=== PATIENT | female | born 1955 | race Caucasian/White ===

== ENCOUNTER 2016-11-15 08:28 | Outpatient (CLI) | payer OTHER ==
--- OUTSIDE RECORDS SUMMARY | 2016-11-15 08:31 | XMS | Summary of Care ---
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 Other malignant neoplasm of unspecified site(199.1, C80.1) Status:Active Abnormal finding in urine(791.9, R82.90) Status:Active Uterine cancer(179, C55) Status:Active Disturbance of acid-base balance(276.9, E87.8) Status:Active Malignant neoplasm of corpus uteri(182.0, C54.9) Status:Active Encounter for antineoplastic chemotherapy(V58.11, Z51.11) Status:Active Malignant neoplasm of cervix uteri(180.9, C53.9) Status:Active Medications Name Dates Details Multi-Vitamin TABS Refills:0 Active Megestrol Acetate 40 MG Oral Tablet 1 pill by mouth four times daily Quantity:120 Refills:3 PEDLEYP.A., ROCKY Start :12-Jan-2016 Active Allergies and Adverse Reactions Name Dates Details Flagyl TABS(Allergy) Status:Active Levaquin TABS(Allergy) Status:Active Macrobid CAPS(Allergy) Status:Active ondansetron(Allergy) Onset:14-Jan-2016 Status:Active Sulfa Antibiotics(Allergy) Status:Active Procedures Procedure Dates Details CT Abdomen/Pelvis w/wo contrast 04430 Date:09-Nov-2016 History of Section Completed History of Carotid Artery Catheterization Completed History of Total Abdominal Hysterectomy With Removal Of Completed Both Ovaries History of Lymphadenectomy Completed Immunization Name Dates Details Immunizations not documented Family History Name Dates Details Family history of Uterine Cancer(V16.49) Comments:Family History Status:Active Family history of Bladder Cancer(V16.52) Comments:Family History Status:Active Family history of Pancreatic Cancer Susceptibility Comments:Family History Status:Active Name Dates Details Family history of Brain Cancer(V16.8) Status:Active Name Dates Details Family history of Hypertension(V17.49) Status:Active Social History Name Dates Details - Status: Name Dates Details Never smoker Vital Signs Date Test Result Details No Known Vitals to report Results Date Description Value Details Results not documented Plan of Care Name Dates Details Planned Observations Planned Goals not documented Planned Encounters Appointment; CRYSTAL MARTINI M.D. On:01-Dec-2016 10:45 Interventions Provided Labs/Procedures/ImagingCT Abdomen/Pelvis w/wo contrast 25253; To Be Done: 09 Nov 2016 Instructions Name Dates Details Instructions not documented Encounters Appointment; CRYSTAL MARTINI M.D. On:22-Dec-2015 14:00 Encounter Diagnosis:Problem not documented Appointment; CRYSTAL MARTINI M.D. On:28-Dec-2015 12:45 Encounter Diagnosis:Problem not documented Appointment; CRYSTAL MARTINI M.D. On:12-Jan-2016 13:00 Encounter Diagnosis:Problem not documented Appointment; FRANKIE MARTINI On:14-Jan-2016 8:30 Encounter Diagnosis:Problem not documented Appointment; CRYSTAL MARTINI M.D. On:04-Feb-2016 9:30 Encounter Diagnosis:Problem not documented Appointment; LAVELLE MARTINI On:04-Feb-2016 10:00 Encounter Diagnosis:Problem not documented Appointment; CRYSTAL MARTINI M.D. On:26-Feb-2016 8:30 Encounter Diagnosis:Problem not documented Appointment; FRANKIE MARTINI On:26-Feb-2016 8:30 Encounter Diagnosis:Problem not documented Appointment; FRANKIE MARTINI On:17-Mar-2016 9:30 Encounter Diagnosis:Problem not documented Appointment; CRYSTAL MARTINI M.D. On:17-Mar-2016 9:30 Encounter Diagnosis:Problem not documented Appointment; CHAIR VINI3 On:07-Apr-2016 9:30 Encounter Diagnosis:Problem not documented Appointment; CRYSTAL MARTINI M.D. On:07-Apr-2016 9:30 Encounter Diagnosis:Problem not documented Appointment; CRYSTAL MARTINI M.D. On:28-Apr-2016 9:30 Encounter Diagnosis:Problem not documented Appointment; LAVELLE MARTINI On:28-Apr-2016 10:00 Encounter Diagnosis:Problem not documented Appointment; CRYSTAL MARTINI M.D. On:02-Jun-2016 10:30 Encounter Diagnosis:Problem not documented Appointment; CRYSTAL MARTINI M.D. On:31-Aug-2016 10:30 Encounter Diagnosis:Problem not documented
--- OUTSIDE RECORDS SUMMARY | 2016-11-15 08:31 | XMS | Summary of Care ---
:1955 Author Name CRYSTAL MARTINI Address Unavailable Unavailable , Care Team Providers [...] Procedure Dates Details CT Abdomen/Pelvis w/wo contrast 61023 Date:09-Nov-2016 History of Section Completed History of [...] 10:45 Interventions Provided Labs/Procedures/ImagingCT Abdomen/Pelvis w/wo contrast 42513; To Be Done: 09 Nov 2016 Instructions [...] On:28-Apr-2016 9:30 Encounter Diagnosis:Problem not documented Appointment; CHAIR VINI2 On:28-Apr-2016 10:00 Encounter Diagnosis:Problem not documented Appointment; CRYSTAL MARTINI M.D. On:02-Jun-2016 10:30 Encounter Diagnosis:Problem not documented Appointment; CRYSTAL MARTINI M.D. On:31-Aug-2016 10:30 Encounter Diagnosis:Problem not documented
--- OUTSIDE RECORDS SUMMARY | 2016-11-15 08:34 | XMS | Clinical Summary ---
:1955 Author Organization [facility] Address [address] [place] [id number] Phone Care Team Providers Name Role Phone Leann José Primary Care Provider Unavailable Allergies Not on File Current Medications Not on file Active Problems Not on file Social History Tobacco Use Types Packs/Day Years Used Date Never Assessed Sex Assigned at Date Recorded Not on file Last Filed Vital Signs Not on file Plan of Treatment Not on file Results Not on filefrom Last 3 Months
[2016-11-15] MEDS ORDERED: Iopamidol 370 76% 100 ML VIAL ONE (09:00)
--- NOTE | 2016-11-15 12:42 | CT ---
CT ABDOMEN WITH AND WITHOUT IV CONTRAST: CT PELVIS WITH AND WITHOUT IV CONTRAST: 11/15/2016 HISTORY: Uterine cancer. COMPARISON: 12/17/2015 and 08/23/2016 FINDINGS: There is linear atelectasis at the left lung base with calcified granuloma again seen. There is min imal atelectasis in the right middle lobe. No discrete pulmonary nodule or mass is identified. No renal or ureteral calculi are seen bilaterally. There is no hydronephrosis. Stable subcentimete r hypodense lesions are again seen at the inferior pole, left kidney, which is difficult to characte rize but statistically likely represents small cysts. Splenic granulomata are present. The liver, pancreas, bilateral adrenal glands, abdominal aorta, opacified bowel, and partially diste nded urinary bladder demonstrate a normal CT appearance. Post surgical changes of the pelvis are again seen, including a hysterectomy. The small, low density soft tissue nodule in the midline anterior pelvis is again seen, measuring 1. 3 cm x 1.1 cm, and previously measured 1.5 cm x 1.4 cm. Scarring in the infraumbilical location is again seen. No free fluid, fluid collection, or lymphadenopathy is seen in the abdomen or pelvis. No other inte rval change. IMPRESSION: 1. Soft tissue nodule, midline anterior pelvis. The overall size is slightly smaller in size maday red to the study on 08/23/2016, where this previously measured 1.5 cm x 1.4 cm and now measure 1.3 c m x 1 cm. The previously described second soft tissue nodule, associated with a small fat-containin g hernia, is not perceptible on this exam. No new soft tissue nodule or lymphadenopathy is seen. 2. Post surgical changes of the pelvis. 3. Previously described prominence involving the verma of the second and third portions of the duod enum is again present. This was also present on the study of 05/23/2016. Given the appearance of t hickening in this region, over multiple studies, endoscopy is suggested for further evaluation. The re is no evidence of bowel obstruction in this region. 4. Stable hypodense lesions, inferior pole, left kidney, statistically likely representing small cy sts. 5. Stable post surgical changes of the pelvis, including hysterectomy. POS: [facility]
== END 2016-11-15 08:29 | disposition home or self-care (01) ==
LOC: SCSCT 08:28
PROVIDERS: ATTEND Obstetrics & Gynecology Gynecologic Oncology
DX: C54.9 Malignant neoplasm of corpus uteri, unspecified (principal); N28.89 Other specified disorders of kidney and ureter; Z90.710 Acquired absence of both cervix and uterus
CPT/HCPCS: 74178

== ENCOUNTER 2017-05-22 07:24 | Outpatient (CLI) | payer OTHER ==
--- NOTE | 2017-05-22 10:25 | CT ---
CT ABDOMEN WITH CONTRAST CT PELVIS WITH CONTRAST: DATE: 05/22/17. TIME: 8:21 a.m. HISTORY: A 61-year-old female with malignant neoplasm of corpus uteri (182.0) (C54.9). COMPARISON: 11/15/16. TECHNIQUE: IV injection of iodinated contrast media: 99 mL of Isovue 370. Oral contrast media: administered. FINDINGS: Uterus is surgically absent. No evidence of adnexal mass. 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 No iliac chain lymphadenopathy identified. Normal urinary bladder. No evidence of tumor mass within the pelvic cavity. Moderately large volume of stool slightly distending the rectu m as previously. No signs of acute colonic diverticulitis. No small bowel dilation. No retroperito kelly, mesenteric, or marques hepatis lymphadenopathy. Small round 1 cm hypodense lesion at lower pole parenchyma of left kidney, stable since 12/17/15, probably a benign cyst. Otherwise, bilaterally norm al kidneys. Liver, adrenals, pancreas, and spleen and appendix are normal. No ascites or pneumoperi toneum. No infiltrate or pleural effusion at lung bases. Again noted is the soft tissue attenuation , approximately 2 x 2.5 x 3 cm mass-like density at the junction between the 2nd and 3rd stages of th e duodenum, similar in appearance to 11/15/16. There is no destructive osseous lesion. Overall, ther e has been no significant interval change since 11/15/16. IMPRESSION: 1. Status post hysterectomy and iliac chain lymph node dissection. 2. No evidence of tumor recurrence in pelvis or metastatic disease. 3. Mass-like density in the duodenum. Recommend endoscopy (if not already performed). 4. No interval change overall since 11/15/16. BECKY Ortiz POS: [facility]
== END 2017-05-22 07:25 | disposition home or self-care (01) ==
LOC: SCSCT 07:24
PROVIDERS: ATTEND Obstetrics & Gynecology Gynecologic Oncology
DX: Z08 Encounter for follow-up examination after completed treatment for malignant neoplasm (principal); Z85.42 Personal history of malignant neoplasm of other parts of uterus; R93.3 Abnormal findings on diagnostic imaging of other parts of digestive tract; Z90.710 Acquired absence of both cervix and uterus; Z98.890 Other specified postprocedural states
CPT/HCPCS: 74177; 82565

== ENCOUNTER 2017-11-17 07:37 | Outpatient (CLI) | payer OTHER ==
[2017-11-17] MEDS ORDERED: Iopamidol 370 76% 100 ML VIAL ONE (09:00)
--- NOTE | 2017-11-17 09:17 | CT ---
CT ABDOMEN AND PELVIS WITH IV CONTRAST: DATE: 11/17/2017. HISTORY: Abdominal pain. Followup ovarian cancer. COMPARISON: 05/22/2017. FINDINGS: Calcified granuloma is seen in the left lower lobe. There is atelectasis versus scarring in the righ t middle lobe with linear atelectasis at the left lung base. No noncalcified pulmonary nodule is see n at either lung base. Calcified granuloma is again seen in the spleen. The liver, pancreas, bilateral adrenal glands, right kidney, and decompressed urinary bladder demonst rate a normal CT appearance. There is a stable subcentimeter too small to characterize hypodense lesion in the inferior pole left kidney statistically likely related to a cyst. Again noted is the mass-like density in the most proximal aspect of the third portion of the duodenum . This measures approximately 3.1 cm x 4 cm. This measured 3 cm x 2.2 cm on the prior exam. This d oes not result in obstruction. As noted on the prior exam, endoscopy is suggested for further evalua tion if this has not been performed. The uterus is absent, likely related to hysterectomy. Surgical clips are seen in the lateral aspect of the pelvis bilaterally also likely related to bilateral oophorectomy. There is a small mass seen within the lower pelvis to the left of midline measuring 2.7 cm x 2 cm, wh ich may represent a solitary metastatic lesion in this region. There has also been interval enlargem ent of a left inguinal lymph node which measures 2.4 cm. No additional enlarged lymph nodes are appr eciated. No other interval change. IMPRESSION: 1. Evidence for metastatic disease with a mass seen in the left pelvis measuring 2.7 cm in maximal d imensions as well as interval development of an enlarged left inguinal lymph node measuring 2.4 cm. 2. Overall stable mass-like density in the proximal 3rd portion of the duodenum. Endoscopy is recom mended for further evaluation if this has not been performed. 3. Hysterectomy. There is nonvisualization of the bilateral ovaries, and findings could also be rel ated to bilateral oophorectomy. CODE T POS: [facility]
== END 2017-11-17 07:38 | disposition home or self-care (01) ==
LOC: SCSCT 07:37
PROVIDERS: ATTEND Obstetrics & Gynecology Gynecologic Oncology
DX: C54.9 Malignant neoplasm of corpus uteri, unspecified (principal); C79.89 Secondary malignant neoplasm of other specified sites; K31.89 Other diseases of stomach and duodenum; Z90.710 Acquired absence of both cervix and uterus; Z90.722 Acquired absence of ovaries, bilateral
CPT/HCPCS: 74177; 82565

== ENCOUNTER 2018-02-15 07:33 | Outpatient (CLI) | payer OTHER ==
--- NOTE | 2018-02-15 13:19 | CT ---
PELVIC CT WITH CONTRAST: Date: 02/15/18 COMPARISON: CT abdomen and pelvis dated 11/17/17; CT abdomen and pelvis dated 05/22/17. CLINICAL INDICATION: History of ovarian cancer, pain, follow-up. (Malignant neoplasm uteri 182.0). FINDINGS: Prior left inguinal lymph node has enlarged, measuring 3.1 x 2.6 cm, compared to 2.3 cm on prior exam . There has been interval enlargement of metastatic deposit within the posterior left pelvis adjacent to the left aspect of the distal sigmoid colon, now measuring 3.9 x 2.4 cm in axial dimension, as co mpared to most recent comparison size of 2.6 x 1.9 cm. On the prior two exams, no duodenal mass was d emonstrated, and this region is not imaged on the current CT pelvis exam for comment. There has been interval enlargement of an additional left inguinal chain lymph node, immediately infe rior to the above described enlarged lymph node. This lymph node measures 2.0 x 1.4 cm in axial dimen sions, compared to 1.5 x 1.1 cm in a similar location on prior exam. Nonspecific wall prominence of the underdistended, visualized colon. Redemonstration of postsurgical change of hysterectomy. IMPRESSION: Progressive metastatic disease of the pelvis, as described above. POS: [facility]
== END 2018-02-15 07:34 | disposition home or self-care (01) ==
LOC: SCSCT 07:33
PROVIDERS: ATTEND Obstetrics & Gynecology Gynecologic Oncology
DX: C54.9 Malignant neoplasm of corpus uteri, unspecified (principal); C79.89 Secondary malignant neoplasm of other specified sites
CPT/HCPCS: 72193; 82565

== ENCOUNTER 2018-05-07 12:15 | Outpatient (CLI) | payer OTHER ==
--- NOTE | 2018-05-07 14:35 | ULT ---
ULTRASOUND DOPPLER DUPLEX VENOUS LEFT UPPER EXTREMITY: DATE: 05/07/2018. HISTORY: A 62-year-old female with left upper extremity edema. TECHNIQUE: Herrera scale, color flow, and spectral analysis of major veins of left upper extremity. Compression an d release applied to all veins, except the subclavian. FINDINGS: There is thrombus causing noncompressibility of the left cephalic vein, from the antecubital fossa to the proximal arm. There is blood flow within this thrombosed cephalic vein. There is no thrombosis of the left ulnar, radial, basilic, brachial, axillary, subclavian, or interna l jugular veins. IMPRESSION: Positive for nonocclusive thrombosis of the cephalic vein in the left arm. POS: [facility]
== END 2018-05-07 12:16 | disposition home or self-care (01) ==
LOC: ULT 12:15
PROVIDERS: ATTEND Family Medicine
DX: I80.8 Phlebitis and thrombophlebitis of other sites (principal); I82.612 Acute embolism and thrombosis of superficial veins of left upper extremity

== ENCOUNTER 2018-05-17 08:59 | Outpatient (CLI) | payer OTHER ==
--- NOTE | 2018-05-17 09:43 | ULT ---
FExam: Bilateral lower extremity venous ultrasound: HISTORY: Cancer patient. Pain. COMPARISON: None TECHNIQUE: Grayscale, color flow, Doppler imaging with spectral wave analysis performed of the left a nd right lower lower extremity venous system.. FINDINGS: In the right leg, there is compressibility, presence of flow and augmentation in the common femoral v ein, femoral vein and popliteal vein. There is flow in the greater saphenous vein, profunda femoral v ein and posterior tibial vein. In the left lower extremity, there is compressibility, presence of flow and augmentation in the commo n femoral vein and femoral vein. There is lack of compressibility and lack of flow in the popliteal vein and posterior tibial vein. IMPRESSION: Deep vein thrombus in left lower extremity deep venous system Results of study discussed by Dr. Lorenzo Fontanez 05/17/2018 at 9:42 AM Code CR Transcribed Date/Time: 05/17/2018 9:52 AM
== END 2018-05-17 09:00 | disposition home or self-care (01) ==
LOC: SCSULT 08:59
PROVIDERS: ATTEND Family Medicine
DX: M79.604 Pain in right leg (principal); M79.605 Pain in left leg; C55 Malignant neoplasm of uterus, part unspecified; I82.402 Acute embolism and thrombosis of unspecified deep veins of left lower extremity
CPT/HCPCS: 93970

== ENCOUNTER 2018-06-14 14:18 | Outpatient (CLI) | payer OTHER ==
--- NOTE | 2018-06-14 15:08 | ULT ---
EXAM: Bilateral lower extremity venous duplex ultrasound with color and spectral Doppler imaging: HISTORY: Bilateral leg pain COMPARISON: 05/17/2018 FINDINGS: Exam performed from the groin to the ankle including the visualized greater saphenous, common femoral , superficial femoral, profunda femoral, popliteal, trifurcation, and posterior tibial veins. There is phasic flow with normal compressibility and normal augmentation at all examined levels. No evidence for intraluminal thrombus. IMPRESSION:: No evidence for deep venous thrombosis. The previously noted intraluminal thrombus seen primarily in the region of the popliteal vein has resolved when compared to the prior study.
== END 2018-06-14 14:19 | disposition home or self-care (01) ==
LOC: SCSULT 14:18
DX: C54.9 Malignant neoplasm of corpus uteri, unspecified (principal); M79.606 Pain in leg, unspecified
CPT/HCPCS: 93970

== ENCOUNTER 2018-07-24 12:16 | Outpatient (CLI) | payer OTHER ==
--- NOTE | 2018-07-24 13:00 | MMO ---
Bilateral MAMMO Bilat Screen [facility]. CLINICAL HISTORY: Patient is 62 years old and is seen for screening. The patient has no family history of breast cancer. The patient has a history of uterine cancer at age 53. VIEWS: The views performed were: bilateral craniocaudal with tomosynthesis and bilateral mediolateral oblique with tomosynthesis. FILMS COMPARED: The present examination has been compared to a prior imaging study performed at [facility] on 07/19/2016. MAMMOGRAM FINDINGS: There are scattered fibroglandular densities. There are no suspicious masses, suspicious calcifications, or new areas of architectural distortion. IMPRESSION: THERE IS NO MAMMOGRAPHIC EVIDENCE OF MALIGNANCY. A ROUTINE FOLLOW-UP MAMMOGRAM IN 1 YEAR IS RECOMMENDED. THE RESULTS OF THIS EXAM WERE SENT TO THE PATIENT. ACR BI-RADS Category 1 - Negative MAMMOGRAPHY NOTE: 1. A negative mammogram report should not delay a biopsy if a dominant of clinically suspicious mass is present. 2. Approximately 10% to 15% of breast cancers are not detected by mammography. 3. Adenosis and dense breasts may obscure an underlying neoplasm.
== END 2018-07-24 12:17 | disposition home or self-care (01) ==
LOC: BICMAMMO 12:16
PROVIDERS: ATTEND Family Medicine
DX: Z12.31 Encounter for screening mammogram for malignant neoplasm of breast (principal); Z85.42 Personal history of malignant neoplasm of other parts of uterus
CPT/HCPCS: 77063; 77067

== ENCOUNTER 2018-08-14 07:27 | Outpatient (CLI) | payer OTHER ==
[2018-08-14] MEDS ORDERED: Iopamidol 370 76% 100 ML VIAL ONE (09:00)
--- NOTE | 2018-08-14 11:26 | CT ---
ABDOMEN AND PELVIC CT SCAN WITH IV COTNRAST: HISTORY: Uterine cancer, prior chemotherapy. COMPARISON: 11/17/2017. FINDINGS: Minimal pleural-based thickening in the right middle lobe medially, probably scarring. Calcified gra nuloma in the left lower lobe. Fatty changes of the liver with some fat sparing adjacent to the gall bladder. No evidence for liver metastasis. The pancreas, spleen, and adrenal glands are unremarkabl e. Small left renal cyst. No renal hydronephrosis. No CT evidence for acute appendicitis. Postop hysterectomy changes. There is an enlarging poorly circumscribed somewhat bilobed mass in the pelvis now measuring 3.2 x 3.9 x 5.6 cm where on the prior study of 11/17/2017 it measured approximately 2 x 2.7 cm. It is contiguous with and appears to be potentially invading the sigmoid colon in 2 areas, 1 to the right of midline, the other to the left of midline. Trace free fluid in the pelvis. 1.8 cm diameter left inguinal lymph node. IMPRESSION: Markedly enlarging poorly circumscribed mass in the pelvis which appears to be potentially invading t he sigmoid colon in 2 places. Trace fluid in the pelvis. Enlarged left inguinal lymph node. Fatty changes of the liver. Other findings as above. CODE T POS: [facility]
== END 2018-08-14 07:28 | disposition home or self-care (01) ==
LOC: SCSCT 07:27
PROVIDERS: ATTEND Obstetrics & Gynecology Gynecologic Oncology
DX: C54.9 Malignant neoplasm of corpus uteri, unspecified (principal); R19.00 Intra-abdominal and pelvic swelling, mass and lump, unspecified site; R59.0 Localized enlarged lymph nodes; K76.0 Fatty (change of) liver, not elsewhere classified; N28.1 Cyst of kidney, acquired; Z90.710 Acquired absence of both cervix and uterus; R91.8 Other nonspecific abnormal finding of lung field
CPT/HCPCS: 74177; 82565; Q9967

== ENCOUNTER 2018-11-10 08:34 | Emergency (ER) | payer OTHER ==
--- NOTE | 2018-11-10 10:08 | ULT ---
Venous duplex sonogram bilateral lower extremity HISTORY: Bilateral leg pain and edema. FINDINGS: Each common femoral vein and greater saphenous junction were evaluated along with each femo ral, deep femoral, popliteal, and posterior tibial vein. There is good color and spectral Doppler flow, compression, and augmentation. IMPRESSION: No sonographic evidence of DVT within either lower extremity.
== END 2018-11-10 10:57 | disposition home or self-care (01) ==
LOC: ERS 08:34
DX: M79.604 Pain in right leg (principal); M79.605 Pain in left leg; Z86.718 Personal history of other venous thrombosis and embolism; Z79.899 Other long term (current) drug therapy
CPT/HCPCS: 93970

== ENCOUNTER 2019-03-20 16:34 | Outpatient (CLI) | payer BC ==
--- NOTE | 2019-03-20 17:25 | ULT ---
Exam: Right lower extremity venous ultrasound with Doppler HISTORY: Right leg pain COMPARISON: None TECHNIQUE: Grayscale, color flow, Doppler imaging and spectral waveform analysis performed the right lower extremity venous system FINDINGS: There is compressibility, presence of flow and augmentation in the common femoral vein, femoral vein and popliteal vein. There is flow in the posterior tibial vein. Flow the greater saphenous vein and profunda femoral vein IMPRESSION: No evidence of thrombus in the right lower extremity deep venous system
== END 2019-03-20 16:35 | disposition home or self-care (01) ==
LOC: ULT 16:34
PROVIDERS: ATTEND Family Medicine
DX: M79.604 Pain in right leg (principal); R79.1 Abnormal coagulation profile
CPT/HCPCS: 36415; 81001; 85379; 87077; 87086; 87186

== ENCOUNTER 2019-04-29 08:41 | Outpatient (CLI) | payer BC ==
--- NOTE | 2019-04-29 11:55 | CT ---
CT OF THE ABDOMEN AND PELVIS WITH IV CONTRAST: INDICATION: History of tumor surgical removal in September 2018 followed by radiation therapy. COMPARISON: Prior CT of the abdomen and pelvis dated 08/14/2018. FINDINGS: ABDOMEN: There is mild bibasilar atelectasis. There is a calcified granuloma in the left lower lobe. No focal hepatic lesion is evident. There has been interval enlargement of the spleen now measuring 13.1 cm where previously it measured 1.15 cm. The pancreas and adrenal glands are normal-appearing. There is a stable 1.1 cm left inferior pole renal cyst. There is an additional subcentimeter cyst alonzo spected in the lower pole left kidney. No focal renal lesion is seen involving the right kidney. No hydronephrosis is evident. No free fluid or enlarged lymph nodes are evident. PELVIS: There is postsurgical change of a partial colectomy and reanastomosis at the colorectal junction. No abnormal soft tissue mass is seen near this region. A small amount of free fluid is present within the pelvis. Previously seen irregular soft tissue mass seen within the left aspect of the pelvis is no longer identified. No pathologically enlarged lymph nodes are evident. There are numerous surgic al clips along the axillary vessels, seen from the last examination but likely related to lymph node dissection. The previously seen enlarged lymph node of the left inguinal region is no longer identified. A very tiny fluid collection is seen at the lower margin of the lower anterior abdominal incision site measu ring 1.2 cm on image 7 of the axial series. There is diffuse osteopenia. Stable small suspected bone island is seen within the right ileum. No definite acute osseous abnormality is demonstrated. IMPRESSION: 1. Interval surgical resection of the heterogeneous soft tissue mass involving the lower central pel vis abutting the sigmoid colon on the prior examination. There has been partial resection of the col on with reanastomosis. Mild free fluid is seen within the lower pelvis. There is no evidence to sug gest recurrent soft tissue mass or lymphadenopathy. Previously seen left inguinal adenopathy is no l onger present. 2. Small fluid collection seen at the base of the lower anterior wall midline incision may reflect a small postoperative fluid collection measuring up to 1.2 cm. 3. Interval development of mild nonspecific splenomegaly. 4. Stable left renal cyst. POS: [facility]
== END 2019-04-29 08:42 | disposition home or self-care (01) ==
LOC: SCSCT 08:41
PROVIDERS: ATTEND Obstetrics & Gynecology Gynecologic Oncology
DX: C54.9 Malignant neoplasm of corpus uteri, unspecified (principal); N28.1 Cyst of kidney, acquired; R16.1 Splenomegaly, not elsewhere classified; R19.09 Other intra-abdominal and pelvic swelling, mass and lump; Z98.890 Other specified postprocedural states
CPT/HCPCS: 74177; 82565

== ENCOUNTER 2019-08-12 09:59 | Outpatient (CLI) | payer BC ==
--- NOTE | 2019-08-12 10:40 | BD ---
EXAM: DEXA bone density examination HISTORY: 64-year-old female for postmenopausal osteoporosis screening with a history of osteopenia COMPARISON: None FINDINGS: L1--bone mineral density 1.045 g/sq cm; T score 0.5. Z score 2.0 L2--bone mineral density 1.068 g/sq cm; T score 0.4; Z score 2.0 L3--bone mineral density 1.071 g/sq cm; T score -0.1; Z score 1.6 L4--bone mineral density 1.128 g/sq cm; T score 0.6, Z score 2.4 Total L1-L4--bone mineral density 1.081 g/sq cm; T score 0.3, Z score 2.0 Left femoral neck--bone mineral density0.744; T score -0.9, Z score 0.5 Total proximal left femur--bone mineral density 0.963; T score 0.2, Z score 1.3 IMPRESSION: Based on the WHO criteria, the patient's bone mineral density is consideredNormal. The p atient is at low risk for fracture.
--- NOTE | 2019-08-12 10:58 | MMO ---
Bilateral MAMMO Bilat Screen [facility]. CLINICAL HISTORY: Patient is 64 years old and is seen for screening. The patient has no family history of breast cancer. The patient has a history of uterine cancer at age 53. VIEWS: The views performed were: bilateral craniocaudal with tomosynthesis and bilateral mediolateral oblique with tomosynthesis. FILMS COMPARED: The present examination has been compared to prior imaging studies performed at [facility] on 07/19/2016 and 07/24/2018. This study has been interpreted with the assistance of computer-aided detection. MAMMOGRAM FINDINGS: There are scattered fibroglandular densities. There are no suspicious masses, suspicious calcifications, or new areas of architectural distortion. IMPRESSION: THERE IS NO MAMMOGRAPHIC EVIDENCE OF MALIGNANCY. A ROUTINE FOLLOW-UP MAMMOGRAM IN 1 YEAR IS RECOMMENDED. THE RESULTS OF THIS EXAM WERE SENT TO THE PATIENT. ACR BI-RADS Category 1 - Negative MAMMOGRAPHY NOTE: 1. A negative mammogram report should not delay a biopsy if a dominant of clinically suspicious mass is present. 2. Approximately 10% to 15% of breast cancers are not detected by mammography. 3. Adenosis and dense breasts may obscure an underlying neoplasm. Reported by: KAROLINE VELIZ MD Electonically Signed: [id number]
== END 2019-08-12 10:00 | disposition home or self-care (01) ==
LOC: BICMAMMO 09:59
PROVIDERS: ATTEND Family Medicine
DX: Z12.31 Encounter for screening mammogram for malignant neoplasm of breast (principal); M85.80 Other specified disorders of bone density and structure, unspecified site; Z85.42 Personal history of malignant neoplasm of other parts of uterus
CPT/HCPCS: 77063; 77067; 77080

== ENCOUNTER 2019-10-04 08:02 | Outpatient (CLI) | payer BC ==
--- NOTE | 2019-10-04 10:40 | CT ---
CT abdomen and pelvis with IV and oral contrast HISTORY: Uterine cancer. Restaging. COMPARISON: 04/29/2019. FINDINGS: Calcified granulomata of the left lung base and abdomen are consistent with healed granulom atous disease. Small amount of oral contrast is seen within the distal esophagus. No evidence of liver mass. Spleen is now of normal size. Very mild distention of the left renal pelvis is stable. No evidence of urinary tract obstruction. Sm all cyst at the inferior pole of the left kidney is unchanged in appearance. No free air or free fluid. Postoperative changes of the anterior abdominal wall again demonstrated. Small collection of fluid at the inferior margin on the prior study is no longer evident. Postoperative changes of the pelvis include suture row at the rectosigmoid junction and hemostasis cl ips along each iliac chain. IMPRESSION : Postoperative changes. No new abnormalities are demonstrated. Small amount of gastroesophageal reflux. Chronic-type findings are stable.
== END 2019-10-04 08:03 | disposition home or self-care (01) ==
LOC: SCSCT 08:02
DX: C54.9 Malignant neoplasm of corpus uteri, unspecified (principal); Z98.890 Other specified postprocedural states; K21.9 Gastro-esophageal reflux disease without esophagitis
CPT/HCPCS: 74177

== ENCOUNTER 2020-02-11 07:31 | Outpatient (CLI) | payer BC ==
--- NOTE | 2020-02-11 08:29 | CT ---
CT Abdomen Pelvis W Con History: Endometrial cancer Comparison: Abdomen pelvis CT October 04, 2019 Findings: Calcified granuloma left lung base. No suspicious nodule. No pericardial effusion. The liver, spleen, pancreas are unremarkable. Calcified granulomas spleen. Adrenal glands are normal. Cyst inferior pole left kidney. No renal mass or hydroureteronephrosis. Surgical clips of the right and left pelvic verma. No retroperitoneal periaortic adenopathy. The aort ic contour is normal. No acute osseous abnormality. No suspicious osteolytic or osteoblastic lesions. Impression: No evidence for disease recurrence or acute intra-abdominal abnormality.
[2020-02-11] MEDS ORDERED: Iopamidol 370 76% 100 ML VIAL ONE (13:16)
== END 2020-02-11 07:32 | disposition home or self-care (01) ==
LOC: BICCT 07:31
PROVIDERS: ATTEND Obstetrics & Gynecology Gynecologic Oncology
DX: C53.9 Malignant neoplasm of cervix uteri, unspecified (principal); C54.9 Malignant neoplasm of corpus uteri, unspecified
CPT/HCPCS: 74177; 82565; Q9967

== ENCOUNTER 2021-08-11 09:40 | Outpatient (CLI) | payer MEDICARE | END 2021-08-11 09:41 | disposition home or self-care (01) | LOC: BICMAMMO 09:40 | PROVIDERS: ATTEND Family Medicine | DX: Z12.31 Encounter for screening mammogram for malignant neoplasm of breast (principal); Z13.820 Encounter for screening for osteoporosis; Z78.0 Asymptomatic menopausal state | CPT/HCPCS: 77063; 77067; 77080 ==

== ENCOUNTER 2023-08-07 10:49 | Emergency (ER) | payer MEDICARE ==
[2023-08-07 12:22] LABS: #Basophils 0.03 10x3/uL (0.0-0.2); #Eosinphils Less than 0.03 10x3/uL (0.0-0.7); %Basophils 0.5 % (0.0-1.0); %Eosinophils 0.3 % (0.0-10.0); %Lymphocytes 18.9 % (21.0-51.0); %Monocytes 7.4 % (0.0-10.0); %Neutrophils 72.6 % (42.0-75.0); Hematocrit 41.7 % (36.0-47.0); Mean Corpuscular HGB CONC 33.6 g/dL (32.0-36.0); Mean Corpuscular Hemoglobin 30.5 pg (27.0-31.0); Mean Corpuscular Volume 90.8 fL (78.0-98.0); Platelet Count 202 10x3/uL (130-400); RBC Distribution Width 12.6 % (11.5-14.5); Red Blood Cell (RBC) Count 4.59 mill/uL (4.20-5.40)
[2023-08-07 12:43] LABS: ALT (SGPT) 27 U/L (8-55); AST (SGOT) 30 U/L (5-34); Alkaline Phosphatase 83 U/L (40-110); Anion Gap 17 mmol/L (10-20); BUN (Urea Nitrogen) 19 mg/dL (9.8-20.1); Bilirubin, Total 0.5 mg/dL (0.2-1.2); Calc. Creatinine Clearance 0 mL/min (70-130); Calcium 10.1 mg/dL (7.8-10.44); Carbon Dioxide 23 mmol/L (23-31); Chloride 103 mmol/L (98-107); Estimated GFR 85; Glucose 77 mg/dL (80-115); Lipase 18 U/L (8-78); Potassium 4.2 mmol/L (3.5-5.1); Sodium 139 mmol/L (136-145)
[2023-08-07] MEDS ORDERED: Iopamidol-370 76% 500 ML MDV (1 ML CHARGE) ONE (12:59)
[2023-08-07 13:14] LABS: Bacteria/HPF None Seen HPF (None Seen); Bilirubin Negative (Negative); Blood, Urine Negative (Negative); CAUTI Indications for Culture Dysuria,urgency,freq; Clarity Clear (Clear); Glucose, Urine (Dipstick) Normal (Negative); Ketone, Urine 100 mg/dL (Negative); Leukocyte 75 Leu/uL (Negative); Nitrite Negative (Negative); Protein, Urine (Dipstick) 10 mg/dL (Neg-Trace); RBC/HPF None Seen HPF (0-3); Specific Gravity, Urine 1.025 (1.002-1.036); Squamous Epithelial 0-3 HPF (0-3); Urobilinogen Normal mg/dL (Less than 2)
[2023-08-07 13:18] LABS: Urine Culture Reflex No No
== END 2023-08-07 15:15 | disposition home or self-care (01) ==
LOC: ERS 10:49
DX: K59.00 Constipation, unspecified (principal)
CPT/HCPCS: 36415; 74177; 80053; 81001; 83690; 85025; Q9967

== ENCOUNTER 2023-09-07 08:34 | Outpatient (CLI) | payer MEDICARE | END 2023-09-07 08:35 | disposition home or self-care (01) | LOC: BICMAMMO 08:34 | PROVIDERS: ATTEND Family Medicine | DX: Z12.31 Encounter for screening mammogram for malignant neoplasm of breast (principal); Z13.820 Encounter for screening for osteoporosis; Z78.0 Asymptomatic menopausal state; Z85.42 Personal history of malignant neoplasm of other parts of uterus | CPT/HCPCS: 77063; 77067; 77080 ==

== ENCOUNTER 2025-02-01 19:24 | Emergency (ER) | payer MEDICARE ==
[2025-02-02 00:16] LABS: #Basophils 0.04 10x3/uL (0.0-0.2); #Eosinophils 0.03 10x3/uL (0.0-0.7); #Monocytes 0.41 10x3/uL (0.11-0.59); #Neutrophils 3.75 10x3/uL (1.40-6.50); %Basophils 0.7 % (0.0-1.0); %Eosinophils 0.5 % (0.0-10.0); %Lymphocytes 23.2 % (21.0-51.0); %Monocytes 7.4 % (0.0-10.0); %Neutrophils 68.0 % (42.0-75.0); Hematocrit 41.7 % (36.0-47.0); Hemoglobin 13.6 g/dL (12.0-16.0); Mean Corpuscular Hemoglobin 29.7 pg (27.0-31.0); Mean Corpuscular Volume 91.0 fL (78.0-98.0); Platelet Count 175 10x3/uL (130-400); Red Blood Cell (RBC) Count 4.58 mill/uL (4.20-5.40); White Blood Cell (WBC) Count 5.52 10x3/uL (4.8-10.8)
[2025-02-02 00:30] LABS: ALT (SGPT) 31 U/L (Less than 34); AST (SGOT) 34 U/L (11-34); Albumin 3.9 g/dL (3.1-4.5); Alkaline Phosphatase 73 U/L (40-110); Anion Gap 13 mmol/L (10-20); BUN (Urea Nitrogen) 16 mg/dL (9.8-20.1); Bilirubin, Total 0.4 mg/dL (0.3-1.2); Calc. Creatinine Clearance 0 mL/min (70-130); Calcium 9.7 mg/dL (7.8-10.44); Carbon Dioxide 27 mmol/L (23-31); Chloride 105 mmol/L (98-107); Globulin 3.4 g/dL (2.4-3.5); Glucose 88 mg/dL (80-115); Potassium 3.9 mmol/L (3.5-5.1); Sodium 141 mmol/L (136-145)
[2025-02-02 04:37] LABS: Bacteria/HPF None Seen HPF (None Seen); CAUTI Indications for Culture Dysuria,urgency,freq; Glucose, Urine (Dipstick) Normal (Negative); Leukocyte Negative Leu/uL (Negative); Protein, Urine (Dipstick) Negative (Neg-Trace); RBC/HPF 0-3 HPF (0-3); Specific Gravity, Urine 1.008 (1.002-1.036); WBC/HPF None Seen HPF (0-3)
[2025-02-02 04:39] LABS: Urine Culture Reflex No No
[2025-02-02] MEDS ORDERED: Iopamidol-370 76% 500 ML MDV (1 ML CHARGE) ONE (12:22)
== END 2025-02-02 03:10 | disposition home or self-care (01) ==
LOC: ERS 19:24
DX: M79.2 Neuralgia and neuritis, unspecified (principal); Z95.0 Presence of cardiac pacemaker
CPT/HCPCS: 70450; 70496; 70498; 80053; 81001; 85025